=== PATIENT | male | born 1965 | race Caucasian/White ===

== ENCOUNTER → 2016-11-15 | Outpatient (CLI) | payer OTHER ==
[~2016-11-15] MED LIST: CENTRUM SILVER1 EAC5 PO; CHANTIX0.5 MG PO; CLINDAMYCIN HC300 MG PO; COLACE100 MG PO; CYCLOBENZAPRINE5 MG PO; Dilaudid PO; ENBREL50 MG/1 ML SC; FLEXERIL10 MG PO; FLEXERIL5 MG PO; FLOMAX0.4 MG PO; FOLVITE1 M1 PO; Fish Oil PO; Flora-Q,Risaquad PO; KADIAN60 MG PO; KEFLEX500 MG PO; KENALOG,ARISTOC80 GM TP; LACTULOSE10 GM/151 PO; LISINOPRIL10 MG PO; LORTAB 5-325 M1 EACH PO; NAPROSYN500 MG PO; NEURONTIN300 MG PO; OXYCODONE HCL10 MG PO; OXYCODONE HCL15 MG PO; OXYCODONE HCL20 M1 PO; PREVACID 24HR15 MG PO; PREVACID30 MG PO; PRINIVIL10 MG PO; Rocephin; SERTRALINE HCL50 MG PO; THERAGRAN1 TABLET PO; THIAMINE,VITAM100 MG PO; Vitamin-E PO; ZESTRIL,PRINIVI10 M1 PO; ZESTRIL10 MG PO
== END | disposition home or self-care (01) ==
LOC: CDC 14:40
DX: I49.1 Atrial premature depolarization (principal)
CPT/HCPCS: 93000

== ENCOUNTER 2016-11-16 13:25 | Day surgery (SDC) | payer OTHER ==
[~2016-11-16] VITALS: Ht 182.9 cm; Wt 88.6 kg
[2016-11-16 14:11] VITALS: BP 131/85
[2016-11-16 15:03] LABS: METH RESISTANT S AUREUS PCR POSITIVE (NEGATIVE)
[2016-11-16 15:09] LABS: PROBE CHECK PASS
[2016-11-16 17:08] VITALS: BP 124/76
[2016-11-16 18:08] VITALS: BP 137/82
== END 2016-11-16 18:15 | disposition home or self-care (01) ==
LOC: SDC 13:25
PROVIDERS: Surgery
PROC: 07BJ0ZX Excision of Left Inguinal Lymphatic, Open Approach, Diagnostic (ICD-10-PCS; principal; 2016-11-16)
DX: R59.1 Generalized enlarged lymph nodes (principal); L40.9 Psoriasis, unspecified; B19.20 Unspecified viral hepatitis C without hepatic coma; B18.2 Chronic viral hepatitis C; R74.0 Nonspecific elevation of levels of transaminase and lactic acid dehydrogenase [LDH]; F17.200 Nicotine dependence, unspecified, uncomplicated; Z80.0 Family history of malignant neoplasm of digestive organs; Z91.041 Radiographic dye allergy status
CPT/HCPCS: 87641; 88305; J0690; J2250; J3010; S0020

== ENCOUNTER 2016-12-24 18:01 | Inpatient (IN) | payer OTHER ==
[~2016-12-24] VITALS: Ht 177.8 cm; Wt 92.1 kg
[2016-12-24 19:21] LABS: HEMATOCRIT 41.4 % (38.0-50.0); MCH 33.2 PG (29.0-34.0); MCHC 34.3 G/DL (30.0-36.0); MCV 96.7 FL (86-99); MEAN PLAT.VOLUME 8.5 uM^3 (9.0-12.4); NRBC (%) 0.2 /100 WBC (0-0); PLATELET COUNT 137 K/uL (156-360); RBC DIS.WIDTH-CV 14.8 % (11.8-14.6); RBC DIS.WIDTH-SD 52.6 % (39-53); RED BLOOD COUNT 4.28 M/uL (4.00-5.50); WHITE BLOOD COUNT 10.8 K/uL (4.1-10.2)
[2016-12-24 19:45] LABS: CHLORIDE 106 mEq/L (99-109); POTASSIUM 4.1 mEq/L (3.7-5.4); SODIUM 135 mEq/L (136-147)
[2016-12-24 19:47] LABS: GLUCOSE 110 mg/dL (70-99)
[2016-12-24 19:48] LABS: ANION GAP 8 MEQ/L (2-14)
[2016-12-24 19:49] LABS: TOTAL BILIRUBIN 1.3 mg/dL (0.0-1.0)
[2016-12-24 19:51] LABS: ALKALINE PHOSPHATASE 190 IU/L (3-129); GFR ESTIMATE (CALCULATED) > 59 mL/min/
[2016-12-24 19:52] LABS: UREA NITROGEN (BUN) 7 mg/dL (9-23)
[2016-12-25 00:19] LABS: ADD MIUA? NO; BILIRUBIN NEGATIVE; BLOOD NEGATIVE; COLOR YELLOW ((YELLOW)); GLUCOSE (STRIP) NEGATIVE; KETONES NEGATIVE; LEUKOCYTES NEGATIVE; NITRITE NEGATIVE; PROTEIN (STRIP) NEGATIVE; SPECIFIC GRAVITY 1.006 (1.000-1.030); UCUL ADDED? NO; UROBILINOGEN 0.2 MG/DL (0.2-1.0)
[2016-12-25] MEDS ORDERED: MORPHINE SULFAT60 MG PO (01:06)
[2016-12-25] MEDS ORDERED: OMEPRAZOLE20 MG PO (01:07)
[2016-12-25] MEDS ORDERED: SLEEP AID PO (01:09)
[2016-12-25] MEDS ORDERED: ANTIDEPRESSANT PO (01:09)
[2016-12-25 02:22] LABS: SERUM ETHYL ALCOHOL < 10 mg/dL
[2016-12-25 07:12] LABS: BASOPHIL COUNT 0.1 K/uL (0-0.1); EOSINOPHIL (%) 26.5 % (0-5); EOSINOPHIL COUNT 2.1 K/uL (0-0.3); HEMATOCRIT 39.3 % (38.0-50.0); IMMATURE GRANULOCYTE (%) 0.3 % (0.0-0.7); INSTRUMENT ABS NEUTROPHIL CT 3.3 K/uL; MCH 32.8 PG (29.0-34.0); MCHC 34.4 G/DL (30.0-36.0); MCV 95.4 FL (86-99); MEAN PLAT.VOLUME 8.6 uM^3 (9.0-12.4); MONOCYTE (%) 5.9 % (3-12); MONOCYTE COUNT 0.5 K/uL (0-0.8); NEUTROPHIL (%) 41.4 % (45-76); NEUTROPHIL COUNT 3.3 K/uL (1.8-6.4); PLATELET COUNT 116 K/uL (156-360); RBC DIS.WIDTH-CV 14.6 % (11.8-14.6); RED BLOOD COUNT 4.12 M/uL (4.00-5.50); WHITE BLOOD COUNT 7.9 K/uL (4.1-10.2)
[2016-12-25 07:57] LABS: ALKALINE PHOSPHATASE 159 IU/L (3-129); ANION GAP 7 MEQ/L (2-14); CHLORIDE 105 MEQ/L (99-109); GFR ESTIMATE (CALCULATED) > 59 mL/min/; GLUCOSE 88 mg/dL (70-99); POTASSIUM 3.3 MEQ/L (3.7-5.4); SAMPLE HEMOLYSIS CHECK 0; SAMPLE ICTERIC CHECK 0; SAMPLE LIPEMIA CHECK 0; SODIUM 137 MEQ/L (136-147); TOTAL BILIRUBIN 1.4 MG/DL (0.0-1.0); UREA NITROGEN (BUN) 5 mg/dL (9-23)
[2016-12-25 09:00] LABS: ERTH.SED.RATE 14 MM/HR (0-20)
[2016-12-25] MEDS ORDERED: TRAZODONE HCL100 MG PO (10:37)
[2016-12-25] MEDS ORDERED: CYMBALTA20 MG PO (10:37)
[2016-12-25 15:14] VITALS: BP 124/67
[2016-12-26] VITALS: BP 122/78
[2016-12-26 00:03] VITALS: BP 125/61
[2016-12-26 06:33] LABS: EOSINOPHIL (%) 20.7 % (0-5); EOSINOPHIL COUNT 1.5 K/uL (0-0.3); HEMATOCRIT 34.4 % (38.0-50.0); IMMATURE GRANULOCYTE (%) 0.3 % (0.0-0.7); INSTRUMENT ABS NEUTROPHIL CT 3.6 K/uL; LYMPHOCYTE COUNT 1.6 K/uL (1.0-2.8); MCH 33.3 PG (29.0-34.0); MCHC 34.9 G/DL (30.0-36.0); MCV 95.6 FL (86-99); MEAN PLAT.VOLUME 8.5 uM^3 (9.0-12.4); MONOCYTE COUNT 0.6 K/uL (0-0.8); NEUTROPHIL (%) 48.5 % (45-76); NEUTROPHIL COUNT 3.6 K/uL (1.8-6.4); PLATELET COUNT 108 K/uL (156-360); RBC DIS.WIDTH-CV 14.6 % (11.8-14.6); RBC DIS.WIDTH-SD 50.7 % (39-53); WHITE BLOOD COUNT 7.3 K/uL (4.1-10.2)
[2016-12-26 07:29] LABS: ANION GAP 7 MEQ/L (2-14); C-REACTIVE PROTEIN 28.9 MG/L (0-10); CHLORIDE 105 MEQ/L (99-109); GFR ESTIMATE (CALCULATED) > 59 mL/min/; GLUCOSE 130 mg/dL (70-99); POTASSIUM 3.6 MEQ/L (3.7-5.4); SAMPLE HEMOLYSIS CHECK 0; SAMPLE ICTERIC CHECK 0; SAMPLE LIPEMIA CHECK 0; SODIUM 137 MEQ/L (136-147); UREA NITROGEN (BUN) 6 mg/dL (9-23)
[2016-12-26 08:37] VITALS: BP 106/58
[2016-12-26 15:00] VITALS: BP 118/57
[2016-12-26 23:19] VITALS: BP 118/60
[2016-12-27 07:01] LABS: EOSINOPHIL (%) 11.3 % (0-5); EOSINOPHIL COUNT 0.8 K/uL (0-0.3); HEMATOCRIT 37.2 % (38.0-50.0); IMMATURE GRANULOCYTE (%) 0.6 % (0.0-0.7); INSTRUMENT ABS NEUTROPHIL CT 4.6 K/uL; LYMPHOCYTE COUNT 1.3 K/uL (1.0-2.8); MCH 32.9 PG (29.0-34.0); MCHC 34.4 G/DL (30.0-36.0); MCV 95.6 FL (86-99); MEAN PLAT.VOLUME 8.8 uM^3 (9.0-12.4); MONOCYTE (%) 6.8 % (3-12); MONOCYTE COUNT 0.5 K/uL (0-0.8); NEUTROPHIL (%) 62.9 % (45-76); NEUTROPHIL COUNT 4.6 K/uL (1.8-6.4); PLATELET COUNT 118 K/uL (156-360); RBC DIS.WIDTH-CV 14.6 % (11.8-14.6); RED BLOOD COUNT 3.89 M/uL (4.00-5.50); WHITE BLOOD COUNT 7.3 K/uL (4.1-10.2)
[2016-12-27 07:21] LABS: ANION GAP 7 MEQ/L (2-14); CHLORIDE 104 MEQ/L (99-109); GFR ESTIMATE (CALCULATED) > 59 mL/min/; GLUCOSE 114 mg/dL (70-99); POTASSIUM 3.6 MEQ/L (3.7-5.4); SAMPLE HEMOLYSIS CHECK 0; SAMPLE ICTERIC CHECK 0; SAMPLE LIPEMIA CHECK 0; SODIUM 138 MEQ/L (136-147); UREA NITROGEN (BUN) 6 mg/dL (9-23)
[2016-12-27 08:01] VITALS: BP 113/69
[2016-12-27 16:01] VITALS: BP 121/60
[2016-12-27 22:59] VITALS: BP 129/62
[2016-12-28 07:34] LABS: HEMATOCRIT 37.6 % (38.0-50.0); MCH 33.2 PG (29.0-34.0); MCHC 34.3 G/DL (30.0-36.0); MCV 96.7 FL (86-99); MEAN PLAT.VOLUME 8.9 uM^3 (9.0-12.4); PLATELET COUNT 114 K/uL (156-360); RBC DIS.WIDTH-CV 14.9 % (11.8-14.6); RBC DIS.WIDTH-SD 53.1 % (39-53); RED BLOOD COUNT 3.89 M/uL (4.00-5.50); WHITE BLOOD COUNT 6.4 K/uL (4.1-10.2)
[2016-12-28 07:58] LABS: ANION GAP 6 MEQ/L (2-14); CHLORIDE 105 MEQ/L (99-109); GFR ESTIMATE (CALCULATED) > 59 mL/min/; GLUCOSE 112 mg/dL (70-99); SAMPLE HEMOLYSIS CHECK 0; SAMPLE ICTERIC CHECK 0; SAMPLE LIPEMIA CHECK 0; SODIUM 138 MEQ/L (136-147); UREA NITROGEN (BUN) 8 mg/dL (9-23)
== END 2016-12-28 12:22 | disposition home or self-care (01) | DRG 596 ==
LOC: EXP 18:01 → EME 18:01 → 5EAST 12-25 02:23 → EDOF 12-25 02:23 → 5EAST 12-25 14:21
PROVIDERS: Emergency Medicine; Internal Medicine; Nurse Practitioner Family; Physician Assistant Medical
DX: L40.8 Other psoriasis (principal); L03.115 Cellulitis of right lower limb; L03.116 Cellulitis of left lower limb; K70.30 Alcoholic cirrhosis of liver without ascites; F10.21 Alcohol dependence, in remission; B18.2 Chronic viral hepatitis C; E87.2 Acidosis; E87.6 Hypokalemia; E88.09 Other disorders of plasma-protein metabolism, not elsewhere classified; G89.29 Other chronic pain; I10 Essential (primary) hypertension; N40.0 Benign prostatic hyperplasia without lower urinary tract symptoms; D64.9 Anemia, unspecified; F17.210 Nicotine dependence, cigarettes, uncomplicated
CPT/HCPCS: 80048; 80053; 81003; 82140; 83605; 83690; 83880; 84145 90; 85025; 85027; 85651; 86140; 87040; 87801; 93306; 93970; 99281; 99285; G0480; J0295; J0690; J1650; J1940; J7030; J7050; J7120

== ENCOUNTER → 2017-01-19 | Outpatient (CLI) | payer OTHER ==
[~2017-01-19] MED LIST changes: +ANTIDEPRESSANT PO; +CYMBALTA20 MG PO; +MORPHINE SULFAT60 MG PO; +OMEPRAZOLE20 MG PO; +SLEEP AID PO; +TRAZODONE HCL100 MG PO
[2017-01-19 09:52] LABS: INTER. NORMALIZED RATIO 1.3; PROTHROMBIN TIME 13.9 SEC (10.2-12.9)
[2017-01-19 09:54] LABS: PTT 32.5 SEC (25-37)
== END | disposition home or self-care (01) ==
LOC: OPR 08:51 → EDSTATUS 09:00 → OPR 09:00
PROVIDERS: Family Medicine
PROC: 0FB13ZX Excision of Right Lobe Liver, Percutaneous Approach, Diagnostic (ICD-10-PCS; principal; 2017-01-19)
DX: B18.2 Chronic viral hepatitis C (principal); K70.30 Alcoholic cirrhosis of liver without ascites
CPT/HCPCS: 77012; 85610; 85730; 88307; 88313; J2250; J2310; J3010

== ENCOUNTER 2017-01-31 17:06 | Emergency (ER) | payer OTHER ==
[~2017-01-31] VITALS: Ht 182.9 cm; Wt 89.3 kg
[2017-01-31 18:36] LABS: BASOPHIL COUNT 0.1 K/uL (0-0.1); EOSINOPHIL (%) 12.2 % (0-5); EOSINOPHIL COUNT 1.5 K/uL (0-0.3); HEMATOCRIT 30.8 % (38.0-50.0); IMMATURE GRANULOCYTE (%) 0.5 % (0.0-0.7); IMMATURE GRANULOCYTE COUNT 0.1 K/uL; INSTRUMENT ABS NEUTROPHIL CT 6.1 K/uL; LYMPHOCYTE COUNT 3.5 K/uL (1.0-2.8); MCH 33.3 PG (29.0-34.0); MCHC 35.1 G/DL (30.0-36.0); MCV 95.1 FL (86-99); MONOCYTE COUNT 1.3 K/uL (0-0.8); NEUTROPHIL (%) 48.4 % (45-76); NEUTROPHIL COUNT 6.1 K/uL (1.8-6.4); PLATELET COUNT 168 K/uL (156-360); RBC DIS.WIDTH-CV 14.6 % (11.8-14.6); RBC DIS.WIDTH-SD 50.5 % (39-53); RED BLOOD COUNT 3.24 M/uL (4.00-5.50); WHITE BLOOD COUNT 12.5 K/uL (4.1-10.2)
[2017-01-31 18:46] LABS: CHLORIDE 107 mEq/L (99-109); SODIUM 133 mEq/L (136-147)
[2017-01-31 18:48] LABS: GLUCOSE 124 mg/dL (70-99)
[2017-01-31 18:49] LABS: ANION GAP 7 MEQ/L (2-14)
[2017-01-31 18:51] LABS: GFR ESTIMATE (CALCULATED) > 59 mL/min/
[2017-01-31 18:52] LABS: UREA NITROGEN (BUN) 5 mg/dL (9-23)
[2017-01-31 19:40] LABS: ADD MIUA? YES; BILIRUBIN NEGATIVE; BLOOD NEGATIVE; COLOR AMBER ((YELLOW)); GLUCOSE (STRIP) NEGATIVE; KETONES NEGATIVE; LEUKOCYTES NEGATIVE; NITRITE NEGATIVE; PROTEIN (STRIP) NEGATIVE; SPECIFIC GRAVITY 1.014 (1.000-1.030)
[2017-01-31 20:11] LABS: BACTERIA NONE SEEN /HPF; EPITHELIAL CELLS NONE SEEN /HPF; HYALINE CASTS 0-5 /LPF; MUCUS TRACE /LPF; UCUL ADDED? NO; WHITE BLOOD CELLS 0-5 /HPF (0-5)
[2017-01-31] MEDS ORDERED: CLEOCIN300 MG PO (20:40)
[2017-01-31 23:03] VITALS: BP 110/76
== END 2017-01-31 23:05 | disposition home or self-care (01) ==
LOC: EME 17:06
PROVIDERS: Emergency Medicine
DX: L03.115 Cellulitis of right lower limb (principal); L03.116 Cellulitis of left lower limb; I10 Essential (primary) hypertension; B19.20 Unspecified viral hepatitis C without hepatic coma; K74.60 Unspecified cirrhosis of liver; L40.9 Psoriasis, unspecified; F17.200 Nicotine dependence, unspecified, uncomplicated
CPT/HCPCS: 71020; 80048; 81003; 82140; 83605; 85025; 87040; 87086; 99281; 99285; J7030